=== PATIENT | male | born 1975 | race African-American/Black ===

== ENCOUNTER 2021-11-21 17:40 | Inpatient (IN) | payer MEDICAID, OTHER ==
[~2021-11-21] VITALS: Ht 175.3 cm; Wt 86.7 kg
[2021-11-21] MEDS ORDERED: ASPIRIN 81MG TABLET PO ONE (18:15)
[2021-11-21] MEDS ORDERED: SODIUM CHLORIDE 0.9% 1,000 ML IV ONE (18:15)
[2021-11-21 18:52] LABS: BASOPHILS % 2.6 % (0.0-2.0); EOSINOPHILS % 3.6 % (0.0-5.0); HEMATOCRIT. 44.9 % (42.0-52.0); HEMOGLOBIN. 15.1 g/dL (14.0-18.0); LYMPHOCYTES % 22.7 % (20.0-50.0); MEAN CORPUSCULAR HEMOGLOBIN 31.6 pg (28.0-32.0); MEAN CORPUSCULAR VOLUME 94.1 fL (80.0-94.0); MEAN PLATELET VOLUME 7.9 fl (7.4-10.4); MONOCYTES % 8.1 % (2.0-8.0); PLATELET 232 x1000/uL (130-400); RED BLOOD CELL COUNT 4.77 mill/uL (4.7-6.1); RED CELL DISTRIBUTION WIDTH 14.2 % (11.6-14.6)
[2021-11-21 19:02] LABS: CHLORIDE 106 mEq/L (98-107)
[2021-11-21 19:05] LABS: *AMPHETAMINES SCREEN URINE NEGATIVE (NEGATIVE); *BARBITURATES SCREEN URINE NEGATIVE (NEGATIVE); *BENZODIAZEPINES SCREEN URINE NEGATIVE (NEGATIVE); *COCAINE SCREEN URINE NEGATIVE (NEGATIVE); METHADONE URINE SCREEN NEGATIVE (NEGATIVE)
[2021-11-21 19:07] LABS: CANNABINOID URINE SCREEN PRESUMTIVE POSITIVE (NEGATIVE); ETHANOL BLOOD 202 mg/dL; OPIATES URINE SCREEN NEGATIVE (NEGATIVE); PHENCYCLIDINE URINE SCREEN NEGATIVE (NEGATIVE)
[2021-11-21] MEDS ORDERED: POTASSIUM CHLORIDE 20MEQ TABLET SR PO ONE (19:30)
[2021-11-21] MEDS ORDERED: ENOXAPARIN 100MG/ML SYR SUBCUT ONE (20:45)
[2021-11-22] VITALS (8 sets, daily range): BP systolic 122–159; BP diastolic 63–99
[2021-11-22] MEDS ORDERED: ACETAMINOPHEN 325MG TABLET PO PRN ×2 (09:30)
[2021-11-22] MEDS ORDERED: LORAZEPAM 0.5MG TABLET PO PRN (09:30)
[2021-11-22] MEDS ORDERED: CLONIDINE 0.1MG TABLET PO PRN (09:30)
[2021-11-22] MEDS ORDERED: DOCUSATE SODIUM 100MG CAPSULE PO PRN (09:30)
[2021-11-22] MEDS ORDERED: HYDROCODONE/ACETAMINOPHEN 5/325MG TABLET PO PRN (09:30)
[2021-11-22] MEDS ORDERED: IPRATROPIUM/ALBUTEROL 0.5-3(2.5)MG/3ML NEB HHN PRN (09:30)
[2021-11-22] MEDS ORDERED: ONDANSETRON HCL 4MG/2ML INJ IV PRN (09:30)
[2021-11-22 13:06] LABS: CREATINE KINASE MB FRACTION 5.4 ng/mL (0.5-3.6)
[2021-11-22] MEDS ORDERED: ENOXAPARIN 40MG/0.4ML SYR SUBCUT SCH (17:00)
[2021-11-22] MEDS ORDERED: ENOXAPARIN 40MG/0.4ML SYR SUBCUT NR (19:30)
[2021-11-22] MEDS ORDERED: ENOXAPARIN 60MG/0.6ML SYR SUBCUT NR (19:30)
[2021-11-23] VITALS: BP 129/85
[2021-11-23 04:00] VITALS: BP 144/93
[2021-11-23] MEDS: METOPROLOL SUCCINATE 50MG ER TABLET PO SCH ×2 (04:38→10:37)
[2021-11-23 06:31] LABS: CHLORIDE 105 mEq/L (98-107)
[2021-11-23 06:37] LABS: BASOPHILS % 0.8 % (0.0-2.0); EOSINOPHILS % 2.9 % (0.0-5.0); HEMATOCRIT. 43.8 % (42.0-52.0); HEMOGLOBIN. 15.2 g/dL (14.0-18.0); LYMPHOCYTES % 25.4 % (20.0-50.0); MEAN CORPUSCULAR HEMOGLOBIN 32.4 pg (28.0-32.0); MEAN CORPUSCULAR VOLUME 93.4 fL (80.0-94.0); MEAN PLATELET VOLUME 8.1 fl (7.4-10.4); MONOCYTES % 11.9 % (2.0-8.0); PLATELET 220 x1000/uL (130-400); RED BLOOD CELL COUNT 4.68 mill/uL (4.7-6.1); RED CELL DISTRIBUTION WIDTH 14.2 % (11.6-14.6)
[2021-11-23 08:00] VITALS: BP 151/55
[2021-11-23] MEDS ORDERED: ENOXAPARIN 100MG/ML SYR SUBCUT SCH (09:00)
[2021-11-23] MEDS ORDERED: METO-385 PO (09:36)
[2021-11-23 12:00] VITALS: BP 146/93
[2021-11-23] MEDS ORDERED: NALOXONE HCL 0.4MG/ML VIAL IV PRN (12:15)
[2021-11-23 12:21] VITALS: BP 143/93
== END 2021-11-23 17:58 | disposition home or self-care (01) | DRG 816 ==
LOC: ER 17:40 → MICUSO 20:36 → EDBEDREQ 20:43 → EDBEDREQSVC 20:43 → EDBEDREQTM 20:43 → 5EST 23:32
PROVIDERS: ADMIT Internal Medicine; ATTEND Internal Medicine
DX: T51.0X1A Toxic effect of ethanol, accidental (unintentional), initial encounter (principal); I21.A1 Myocardial infarction type 2; I50.22 Chronic systolic (congestive) heart failure; E11.9 Type 2 diabetes mellitus without complications; I11.0 Hypertensive heart disease with heart failure; D72.821 Monocytosis (symptomatic); E87.6 Hypokalemia; F10.129 Alcohol abuse with intoxication, unspecified; R55 Syncope and collapse; Z20.822 Contact with and (suspected) exposure to COVID-19; Y71.2 Prosthetic and other implants, materials and accessory cardiovascular devices associated with adverse incidents; Y92.89 Other specified places as the place of occurrence of the external cause; F12.90 Cannabis use, unspecified, uncomplicated; Y90.7 Blood alcohol level of 200-239 mg/100 ml; I25.10 Atherosclerotic heart disease of native coronary artery without angina pectoris; I25.2 Old myocardial infarction; Z95.810 Presence of automatic (implantable) cardiac defibrillator; Z71.41 Alcohol abuse counseling and surveillance of alcoholic; Z71.51 Drug abuse counseling and surveillance of drug abuser
CPT/HCPCS: 36415; 71045; 80048; 80053; 80061; 80305; 80320; 82550; 82553; 83036; 83735; 83880; 84484; 85025; 85379; 87426; 93005; 93306; 93880; 99291; J1650; J7030; G0480